=== PATIENT | male | born 1960 | race Caucasian/White ===

== ENCOUNTER 2016-11-05 22:14 | Emergency (ER) | payer MEDICARE, OTHER ==
--- NOTE | 2016-11-05 23:56 | ER Document Report ---
ED General - General Mode of Arrival: Ambulatory Information source: Patient TRAVEL OUTSIDE OF THE [place] IN LAST 30 DAYS: No - HPI Patient complains to provider of: Possible overdose on Tapentadol Onset: Just prior to arrival - approximately 2200 Associated symptoms: Other - see HPI <DELVIS BAUMAN - Last Filed: 11/06/16 01:22> <ANANTJOHN ANN - Last Filed: 11/06/16 06:23> - General Chief Complaint: Accidental OD of medication Stated Complaint: POSSIBLE OVERDOSE Notes: 56 year old male with history of chronic back pain, hypertension, hyperlipidemia , and pre-diabetes presents to the ED after accidentally consuming tomorrow's dose of Tapentadol (75mg) at approximately 2200 this evening. The states that they usually use a pill box to assign the weekly doses of medications for the patient, but since they were recently on vacation, the was using it as a storage for all of the patient's medications and the patient accidentally took an extra days worth of Tapentadol. states that the patient took 1 Tapentadol tablet, Ambien, and Vistaril at approximately 1700 this afternoon as part of his normal dose for today. Patient then accidentally took 3 additional tablets of Tapentadol at 2200. Patient denies nausea or suicidal ideation. ( DELVIS BAUMAN) - Related Data Allergies/Adverse Reactions: codeine [Codeine] Adverse Reaction (Verified 11/18/14 12:51) Past Medical History - General Information source: Patient, Relative - - Social History Smoking Status: Unknown if Ever Smoked Family History: Reviewed & Not Pertinent - Past Medical History Cardiac Medical History: Reports: Hx Coronary Artery Disease, Hx Hypercholesterolemia, Hx Hypertension Endocrine Medical History: Reports: Hx Diabetes Mellitus Type 2 - 'pre-diabetes' Renal/ Medical History: Denies: Hx Peritoneal Dialysis Musculoskeltal Medical History: Reports Hx Arthritis Psychiatric Medical History: Reports: Hx Depression Past Surgical History: Reports: Hx Orthopedic Surgery - In September 2014 laminectomy, March 2014 fusion C6-C7,2007 shoulder surger, Hx Tonsillectomy - When the patient is 20 - Immunizations Hx Diphtheria, Pertussis, Tetanus Vaccination: Yes <DELVIS BAUMAN - Last Filed: 11/06/16 01:22> Review of Systems - Review of Systems Constitutional: No symptoms reported EENT: No symptoms reported Cardiovascular: No symptoms reported Respiratory: No symptoms reported Gastrointestinal: No symptoms reported. denies: Nausea Genitourinary: No symptoms reported Male Genitourinary: No symptoms reported Musculoskeletal: No symptoms reported Skin: No symptoms reported Hematologic/Lymphatic: No symptoms reported Neurological/Psychological: No symptoms reported. denies: Suicidal ideation -: Yes All other systems reviewed and negative <DELVIS BAUMAN - Last Filed: 11/06/16 01:22> Physical Exam - General General appearance: Other - Drowsy but arousable In distress: None - HEENT Head: Normocephalic, Atraumatic Eyes: Normal Extraocular movements intact: Yes Pupils: PERRL - Respiratory Respiratory status: No respiratory distress Breath sounds: Normal - Cardiovascular Rhythm: Regular Heart sounds: Normal auscultation - Abdominal Inspection: Normal - Back Back: Normal - Extremities General upper extremity: Normal inspection, Normal ROM General lower extremity: Normal inspection, Normal ROM - Neurological Neuro grossly intact: Yes Cognition: Normal Orientation: AAOx4 Jasmin Coma Scale Eye Opening: Spontaneous Jasmin Coma Scale Verbal: Oriented [place] Coma Scale Motor: Obeys Commands Jasmin Coma Scale Total: 15 Speech: Normal - Psychological Associated symptoms: Normal affect, Normal mood - Skin Skin Temperature: Warm Skin Moisture: Dry Skin Color: Normal <DELVIS BAUMAN - Last Filed: 11/06/16 01:22> Course - Laboratory Result Diagrams: 11/05/16 23:52 11/05/16 23:52 <DELVIS BAUMAN - Last Filed: 11/06/16 01:22> - Laboratory Result Diagrams: 11/05/16 23:52 11/05/16 23:52 <JOHN NY - Last Filed: 11/06/16 06:23> - Re-evaluation Re-evalutation: 11/06/16 23:45 Patient discussed with poison control recommends observing the patient for about 8 hours from time of ingestion. Onset should be 3-6 hours. Discussed with patient who agrees with this plan. 11/06/16 01:21 Resting comfortably. Awakes to verbal stimuli. Vital signs within normal limits. 11/06/16 02:45 Resting comfortably. Vital signs within normal limits. No respiratory distress or depression. 11/06/16 04:00 Patient is a 56-year-old male who accidentally took extra doses of his Nucynta this evening. Patient was discussed with poison control who recommended watching the patient for 8 hours from the time of ingestion. Ingestion happened at 8:30 last night. Patient is drowsy but easily arousable to verbal stimuli. Vitals have been stable. No respiratory distress or difficulty breathing. Respirations and oxygenation have been within normal limits. Patient will be discharged home and is instructed to take his medications only as prescribed. Stable for discharge with . Understands and agrees with plan. This is not in any way intentional. Patient and adamantly denies suicidal and homicidal ideation. (JOHN NY) - Vital Signs Vital signs: Temp Pulse Resp BP Pulse Ox 98.3 F 82 11 L 137/81 H 93 11/05/16 22:40 11/05/16 22:40 11/06/16 01:01 11/06/16 01:01 11/06/16 01:01 - Laboratory Laboratory results interpreted by me: 11/05/16 23:52 BUN 23 H Salicylates < 1.0 L Acetaminophen < 10 L Critical Care Note - Critical Care Note Total time excluding time spent on procedures (mins): 60 - evaluation and management of unintentional overdose with multiple re-evaluations, coordination with poison control, counseling of patient and family <JOHN NY - Last Filed: 11/06/16 06:23> Discharge <DELVIS BAUMAN - Last Filed: 11/06/16 01:22> <JOHN NY - Last Filed: 11/06/16 06:23> - Discharge Clinical Impression: Accidental overdose Qualifiers: Encounter type: initial encounter Qualified Code(s): T50.901A - Poisoning by unspecified drugs, medicaments and biological substances, accidental ( unintentional), initial encounter Condition: Stable Disposition: HOME, SELF-CARE Instructions: Instructions for Home Care Following a Drug Overdose ([facility]), Overdose ([facility]) Additional Instructions: Please make sure you are taking your medications only as prescribed. Referrals: JOY HAIRSTON JR, MD [Primary Care Provider] - Follow up tomorrow Scribe Attestation: 11/06/16 06:23 I personally performed the services described in the documentation, reviewed and edited the documentation which was dictated to the scribe in my presence, and it accurately records my words and actions. (JOHN NY) Scribe Documentation - Scribe Written by Eulalia:: Eulalia Arango, 11/06/2016 0108 acting as scribe for :: Anant <DELVIS BAUMAN - Last Filed: 11/06/16 01:22>
[2016-11-06 00:14] LABS: ABSOLUTE EOSINOPHILS # (AUTO) 0.1 10^3/uL (0.0-0.6); ABSOLUTE LYMPHOCYTES (AUTO) 1.8 10^3/uL (0.5-4.7); ABSOLUTE MONOCYTES (AUTO) 0.5 10^3/uL (0.1-1.4); BASOPHILS % (AUTO) 0.7 % (0-2); EOSINOPHILS % (AUTO) 1.7 % (0-6); HEMATOCRIT 41.3 % (37.9-51.0); HEMOGLOBIN 13.8 g/dL (13.5-17.0); HGB HCT DIFFERENCE 0.1; LYMPHOCYTES % (AUTO) 32.4 % (13-45); MEAN CORPUSCULAR HEMOGLOBIN 29.6 pg (27.0-33.4); MEAN CORPUSCULAR HGB CONC 33.5 g/dL (32.0-36.0); MEAN CORPUSCULAR VOLUME 88 fl (80-97); MONOCYTES % (AUTO) 9.1 % (3-13); RED BLOOD COUNT 4.67 10^6/uL (4.35-5.55); RED CELL DISTRIBUTION WIDTH 13.1 % (11.5-14.0); SEGMENTED NEUTROPHILS % (AUTO) 56.1 % (42-78); WHITE BLOOD COUNT 5.4 10^3/uL (4.0-10.5)
--- NOTE | 2016-11-06 00:17 | EKG REPORT ---
SEVERITY:- NORMAL ECG - SINUS RHYTHM : Confirmed by: Virginia Gleason 06-Nov-2016 00:17:03
[2016-11-06 00:24] LABS: ALANINE AMINOTRANSFERASE 26 U/L (21-72); ALBUMIN 4.4 g/dL (3.5-5.0); ALKALINE PHOSPHATASE 72 U/L (38-126); ANION GAP 12 (5-19); ASPARTATE AMINO TRANSFERASE 17 U/L (17-59); BILIRUBIN,DIRECT 0.1 mg/dL (0.0-0.4); BILIRUBIN,TOTAL 0.3 mg/dL (0.2-1.3); BLOOD UREA NITROGEN 23 mg/dL (7-20); CALCIUM 10.2 mg/dL (8.4-10.2); CARBON DIOXIDE 27 mmol/L (22-30); CHLORIDE 103 mmol/L (98-107); CREATININE RESULT 1.18 mg/dL (0.52-1.25); GLUCOSE 96 mg/dL (75-110); TOTAL PROTEIN 6.6 g/dL (6.3-8.2)
[2016-11-06 00:27] LABS: ALCOHOL < 10 mg/dL (NONE DETECTED)
[2016-11-06 01:24] VITALS: BP 137/81
== END 2016-11-06 04:45 | disposition home or self-care (01) ==
LOC: ER 22:14
DX: T39.8X1A Poisoning by other nonopioid analgesics and antipyretics, not elsewhere classified, accidental (unintentional), initial encounter (principal); R40.0 Somnolence; M54.9 Dorsalgia, unspecified; G89.29 Other chronic pain; I25.10 Atherosclerotic heart disease of native coronary artery without angina pectoris; I10 Essential (primary) hypertension; Z79.899 Other long term (current) drug therapy; Z98.1 Arthrodesis status
CPT/HCPCS: 36415; 80053; 80307; 85025; 93005; 93010; 99285

== ENCOUNTER → 2018-06-26 | Outpatient (CLI) | payer MEDICARE, OTHER ==
--- NOTE | 2018-06-26 15:07 | RADIOLOGY REPORT (SQ) ---
EXAM DESCRIPTION: NM 3 PHASE BONE SCAN COMPLETED DATE/TIME: 06/26/2018 2:25 pm REASON FOR STUDY: LEFT KNEE PAIN (M25.562) M25.562 PAIN IN LEFT KNEE COMPARISON: Left knee 12/24/2014 RADIONUCLIDE AND DOSE: 20 millicuries Tc99m HDP. The route of agent administration: Intravenous. ADDITIONAL DRUGS AND DOSES: None. TECHNIQUE: Following injection of the radiopharmaceutical, serial blood flow images acquired. Equil ibrium blood pool images then acquired. Routine delayed images at 3 hours acquired of the areas of c linical concern with additional focused images as needed. AREA OF INTEREST: Left knee LIMITATIONS: None. FINDINGS: VASCULAR FLOW IMAGES: Hyperemia at the left knee. BLOOD POOL IMAGES: Increased blood pooling at the left knee. BONES: Delayed images show increased uptake in the distal femur and proximal tibia on the left. KIDNEYS: Symmetric excretion without obstruction. OTHER: No other significant finding. IMPRESSION: Three-phase bone scan shows hyperemia and increased uptake in the left knee consistent w ith the knee replacement surgery that was done 9 months earlier. Unfortunately, increased activity c an persist for considerable time. COMMENT: Quality measure 147: Current bone scan is compared with any available plain radiographs, p rior bone scans, and CT/MRI. TECHNICAL DOCUMENTATION: JOB ID: [id number] [employer]- All Rights Reserved Reading location - IP/workstation name: [email or web address]
== END ==
LOC: RAD 09:40
PROVIDERS: ATTEND Orthopaedic Surgery
DX: M25.562 Pain in left knee (principal)
CPT/HCPCS: 78315; A9561

== ENCOUNTER → 2018-07-15 | Day surgery (SDC) | payer MEDICARE, OTHER ==
[~2018-07-15] MED LIST: BUPIVACAINE HCL 0.5 % INJ/PF 30 ML SDV ONE; METHYLPREDNISOLONE ACETATE INJ 80 MG/1 ML VIAL ONE
--- NOTE | 2018-07-15 13:58 | RADIOLOGY REPORT (SQ) ---
EXAM DESCRIPTION: INJECT/ASPIR HIP/SHLDR/KNEE; FLUORO/NEEDLE PLACEMENT COMPLETED DATE/TIME: 07/15/2018 1:32 pm REASON FOR STUDY: LEFT KNEE LOOSENING (T84.033A) M25.562 PAIN IN LEFT KNEE M17.12 UNILATERAL PRIMA RY OSTEOARTHRITIS, LEFT KNEE T84.033A MECH LOOSENING OF INTERNAL LEFT KNEE PROSTHETIC DACIA COMPARISON: OUTSIDE PLAIN FILMS 05/13/2018, 10/07/2017 THREE-PHASE BONE SCAN OF THE KNEES 06/26/2018 FLUOROSCOPY TIME: 0.2 minutes 1 digital radiographic image saved to PACS. LIMITATIONS: None. PROCEDURE: SITE OF JOINT SPACE ASPIRATION: LEFT KNEE, total fluid aspirated 30 mL of clear yellow sy novial fluid Using local anesthesia and sterile technique with fluoroscopic guidance, a 22 gauge spinal needle was advanced into the left knee joint. Prompt return of thick yellow synovial fluid, 30 mL was aspirate d and sent for testing as per Dr. Gale. The needle was removed. There were no immediate complic ations. The fluoroscopic image demonstrates lucency between the tibial component of the prosthesis and the na tive bone. IMPRESSION: DIAGNOSTIC ASPIRATION OF THE LEFT KNEE JOINT ABOVE. CULTURES ARE PENDING. COMMENT: Patient medication list reviewed: Yes- Quality ID# [id number]:Eligible professional attests to doc umenting in the medical record they obtained, updated, or reviewed the patient's current medications. . Quality ID 145: Final reports for procedures using fluoroscopy that document radiation exposure guillermo kamlesh, or exposure time and number of fluorographic images (if radiation exposure indices are not avail able) TECHNICAL DOCUMENTATION: JOB ID: [id number] [employer]- All Rights Reserved Reading location - IP/workstation name: [email or web address]
--- NOTE | 2018-07-15 13:59 | RADIOLOGY REPORT (SQ) ---
EXAM DESCRIPTION: INJECT/ASPIR HIP/SHLDR/KNEE; FLUORO/NEEDLE PLACEMENT COMPLETED DATE/TIME: 07/15/2018 1:32 pm REASON FOR STUDY: LEFT KNEE LOOSENING (T84.033A) M25.562 PAIN IN LEFT KNEE M17.12 UNILATERAL PRIMA RY OSTEOARTHRITIS, LEFT KNEE T84.033A MECH LOOSENING OF INTERNAL LEFT KNEE PROSTHETIC DACIA COMPARISON: OUTSIDE PLAIN FILMS 05/13/2018, 10/07/2017 THREE-PHASE BONE SCAN OF THE KNEES 06/26/2018 FLUOROSCOPY TIME: 0.2 minutes 1 digital radiographic image saved to PACS. LIMITATIONS: None. PROCEDURE: SITE OF JOINT SPACE ASPIRATION: LEFT KNEE, total fluid aspirated 30 mL of clear yellow sy novial fluid Using local anesthesia and sterile technique with fluoroscopic guidance, a 22 gauge spinal needle was advanced into the left knee joint. Prompt return of thick yellow synovial fluid, 30 mL was aspirate d and sent for testing as per Dr. Gale. The needle was removed. There were no immediate complic ations. The fluoroscopic image demonstrates lucency between the tibial component of the prosthesis and the na tive bone. IMPRESSION: DIAGNOSTIC ASPIRATION OF THE LEFT KNEE JOINT ABOVE. CULTURES ARE PENDING. COMMENT: Patient medication list reviewed: Yes- Quality ID# [id number]:Eligible professional attests to doc umenting in the medical record they obtained, updated, or reviewed the patient's current medications. . Quality ID 145: Final reports for procedures using fluoroscopy that document radiation exposure guillermo kamlesh, or exposure time and number of fluorographic images (if radiation exposure indices are not avail able) TECHNICAL DOCUMENTATION: JOB ID: [id number] [employer]- All Rights Reserved Reading location - IP/workstation name: [email or web address]
[2018-07-15 15:11] LABS: FLUID SOURCE KNEE; FLUID TYPE SYNOVIAL
[2018-07-15 15:12] LABS: FLUID APPEARANCE CLOUDY; FLUID COLOR YELLOW
[2018-07-15 15:13] LABS: FLUID VISCOSITY HIGHLY VISCOUS
== END ==
LOC: RAD 12:26
PROVIDERS: ATTEND Orthopaedic Surgery
DX: M25.562 Pain in left knee (principal); M17.12 Unilateral primary osteoarthritis, left knee; T84.033A Mechanical loosening of internal left knee prosthetic joint, initial encounter
CPT/HCPCS: 87205; 87070; 89050; 87075; 20610; 77002; J3490; J1040

== ENCOUNTER → 2019-03-26 | Outpatient (CLI) | payer MEDICARE, OTHER ==
--- NOTE | 2019-03-27 10:40 | RADIOLOGY REPORT (SQ) ---
EXAM DESCRIPTION: NM 3 PHASE BONE SCAN COMPLETED DATE/TIME: 03/26/2019 1:35 pm REASON FOR STUDY: M25.562 PAIN IN LEFT KNEE M25.562 PAIN IN LEFT KNEE R22.42 LOCALIZED SWELLING, M ASS AND LUMP, LEFT LOWER LIMB COMPARISON: 06/26/2018 RADIONUCLIDE AND DOSE: 20.1 millicuries Tc99m HDP. The route of agent administration: Intravenous. ADDITIONAL DRUGS AND DOSES: None. TECHNIQUE: Following injection of the radiopharmaceutical, serial blood flow images acquired. Equil ibrium blood pool images then acquired. Routine delayed images at 3 hour acquired of the areas of cl inical concern with additional focused images as needed. AREA OF INTEREST: Left knee. LIMITATIONS: None. FINDINGS: VASCULAR FLOW IMAGES: Mild hyperemia in the left knee. BLOOD POOL IMAGES: Increased profusion adjacent the left knee prosthesis. BONES: Increased uptake adjacent to left knee prosthesis. Mild increased uptake right knee consisten t with degenerative change. KIDNEYS: Kidneys not imaged. OTHER: No other significant finding. IMPRESSION: Positive 3 phase bone scan adjacent to left knee prosthesis. Cannot exclude loosening o r infection. COMMENT: Quality measure 147: Current bone scan is compared with any available plain radiographs, p rior bone scans, and CT/MRI. TECHNICAL DOCUMENTATION: JOB ID: [id number] 2001 [employer]- All Rights Reserved Reading location - IP/workstation name: [email or web address]
== END ==
LOC: RAD 09:36
PROVIDERS: ATTEND Orthopaedic Surgery
DX: M79.89 Other specified soft tissue disorders (principal)
CPT/HCPCS: 78315; A9561; Q9969

== ENCOUNTER → 2019-04-01 | Outpatient (CLI) | payer MEDICARE, OTHER ==
--- NOTE | 2019-04-01 15:43 | RADIOLOGY REPORT (SQ) ---
EXAM DESCRIPTION: CT LT LOWER EXTREMITY WITHOUT COMPLETED DATE/TIME: 04/01/2019 10:00 am REASON FOR STUDY: M25.462 EFFUSION, LEFT KNEE M25.462 EFFUSION, LEFT KNEE COMPARISON: MRI left knee 11/03/2014 Left knee radiographs 12/24/2014 Bone scan 06/26/2018, 03/16/2019 Left knee fluoroscopic aspiration 07/15/2018 TECHNIQUE: CT scan of the left knee performed without intravenous or oral contrast. Images reviewed with soft tissue and bone windows. Reconstructed coronal and sagittal MPR images reviewed. All gris ges stored on PACS. All CT scanners at this facility use dose modulation, iterative reconstruction, and/or weight based d osing when appropriate to reduce radiation dose to as low as reasonably achievable (ALARA). [facility]: Dose Right [facility]: CareDose [facility]: Dose Right [facility]: Teradose 4D [facility]: [employer] RADIATION DOSE: CT Rad equipment meets quality standard of care and radiation dose reduction techniq ues were employed. CTDIvol: 5.0 mGy. DLP: 141 mGy-cm. mGy. LIMITATIONS: Streak artifact from total knee replacement, no arthrogram contrast FINDINGS: There is lucency between the tibial component bone cement and the [place] medullary hilar b ones worrisome for tibial prosthesis loosening. This is best shown on axial images 51-65, sagittal i mage 29, coronal image 37. The streak artifact from metallic prosthesis over the distal femur obscures its interface with the na tive bone. Periosteal new bone is seen along the medial and lateral edges of the medial and lateral tibial plate aus. No other heterotopic ossification around the left knee joint. Soft tissue windows demonstrate fullness in the suprapatellar recess region, either from a large join t effusion or synovial thickening debris. This is best shown on sagittal image 34 and axial image 20 . No findings worrisome for fracture. IMPRESSION: Lucency between the tibial prosthesis and [place] periosteal new bone along the periphery of the medial and lateral tibial plateaus. Findings could be seen in loosening or infection Fullness in the suprapatellar recess from joint effusion/synovial thickening or synovial proliferatio n TECHNICAL DOCUMENTATION: JOB ID: [id number] Quality ID # [id number]: Final reports with documentation of one or more dose reduction techniques (e.g., Au tomated exposure control, adjustment of the mA and/or kV according to patient size, use of iterative reconstruction technique) 2010 [employer]- All Rights Reserved Reading location - IP/workstation name: [email or web address]
== END ==
LOC: RAD 09:42
PROVIDERS: ATTEND Orthopaedic Surgery
DX: M25.462 Effusion, left knee (principal)

== ENCOUNTER → 2019-11-18 | Day surgery (SDC) | payer MEDICARE, OTHER ==
--- NOTE | 2019-11-18 14:02 | RADIOLOGY REPORT (SQ) ---
EXAM DESCRIPTION: FLUORO/NEEDLE PLACEMENT; INJECT/ASPIR HIP/SHLDR/KNEE IMAGES COMPLETED DATE/TIME: 11/18/2019 1:36 pm REASON FOR STUDY: M25.562 PAIN IN LEFT KNEE M25.562 PAIN IN LEFT KNEE COMPARISON: Left knee aspiration 07/15/2018 FLUOROSCOPY TIME: 9 seconds of fluoroscopy was used. 1 images saved to PACS. LIMITATIONS: None. PROCEDURE: SITE OF ASPIRATION: Left knee LOCALIZING CONTRAST TYPE AND DOSE: None MEDICATION TYPE AND DOSE: 5 mL 1% lidocaine was used for local anesthesia Using local anesthesia and sterile technique with fluoroscopic guidance, the 20 gauge spinal needle n eedle was advanced into the joint. Approximately 120 mL blood-tinged synovial fluid was aspirated fr om the left knee. Approximately 32 mL the fluid was sent to lab for analysis. The needle was remove d. There were no immediate complications. IMPRESSION: SUCCESSFUL LEFT KNEE JOINT ASPIRATION ABOVE. COMMENT: Patient medication list reviewed: Yes- Quality ID# [id number]:Eligible professional attests to doc umenting in the medical record they obtained, updated, or reviewed the patient's current medications. . Quality ID 145: Final reports for procedures using fluoroscopy that document radiation exposure guillermo kamlesh, or exposure time and number of fluorographic images (if radiation exposure indices are not avail able) TECHNICAL DOCUMENTATION: JOB ID: [id number] 2010 [employer] All Rights Reserved Reading location - IP/workstation name: [email or web address]
== END ==
LOC: RAD 12:51
PROVIDERS: ATTEND Physician Assistant
DX: M25.562 Pain in left knee (principal)
CPT/HCPCS: 20610; 77002; 87070; 87075; 87205

== ENCOUNTER → 2020-09-02 | Outpatient (CLI) | payer MEDICARE, OTHER ==
[~2020-09-02] MED LIST changes: -BUPIVACAINE HCL 0.5 % INJ/PF 30 ML SDV ONE; +COVID-19 VACCINE (PFIZER)/PF 30 MCG/0.3 ML VIAL IM ONE; +EPINEPHRINE INJ/PF 1 MG/1 ML AMPULE IM PRN; -METHYLPREDNISOLONE ACETATE INJ 80 MG/1 ML VIAL ONE
== END ==
LOC: EMPHEALTH 13:57
PROVIDERS: ATTEND Internal Medicine
DX: Z23 Encounter for immunization (principal)
CPT/HCPCS: 91300